=== PATIENT | female | born 1995 | race Caucasian/White ===

== ENCOUNTER 2017-07-02 17:29 | Emergency (ER) | payer BC ==
[~2017-07-02] VITALS: Ht 157.5 cm; Wt 74.4 kg
[2017-07-02 19:28] VITALS: BP 145/81
== END 2017-07-02 19:29 | disposition home or self-care (01) ==
LOC: RME 17:29 → EME 17:29 → RME 19:29
PROC: 0HQGXZZ Repair Left Hand Skin, External Approach (ICD-10-PCS; principal; 2017-07-02)
DX: S61.213A Laceration without foreign body of left middle finger without damage to nail, initial encounter (principal); W26.0XXA Contact with knife, initial encounter
CPT/HCPCS: 99281; 99283

== ENCOUNTER 2017-12-14 13:43 | Emergency (ER) | payer BC ==
[~2017-12-14] VITALS: Ht 157.5 cm; Wt 69.8 kg
[2017-12-14 17:30] LABS: HEMATOCRIT 42.5 % (36.0-46.0); MCH 29.2 PG (29.0-34.0); MCHC 32.9 G/DL (30.0-36.0); MCV 88.7 FL (83-99); PLATELET COUNT 221 K/uL (156-360); RBC DIS.WIDTH-CV 12.9 % (11.8-14.6); RBC DIS.WIDTH-SD 41.9 % (39-53); RED BLOOD COUNT 4.79 M/uL (3.80-5.20); WHITE BLOOD COUNT 5.5 K/uL (4.1-10.2)
[2017-12-14] MEDS ORDERED: VIBRAMYCIN100 MG PO (17:49)
[2017-12-14 18:07] LABS: CHLORIDE 107 MEQ/L (99-109); POTASSIUM 3.8 MEQ/L (3.7-5.4); SODIUM 139 MEQ/L (136-147)
[2017-12-14 18:12] LABS: CREATININE 0.6 MG/DL (0.6-1.3); GFR ESTIMATE (CALCULATED) > 59 mL/min/; GLUCOSE 84 mg/dL (70-99); UREA NITROGEN (BUN) 12 mg/dL (9-23)
[2017-12-14 18:40] LABS: QUANTITATIVE HCG < 4.0 MIU/ML
[2017-12-14 18:48] VITALS: BP 117/78
[2017-12-15 10:46] LABS: LYME DISEASE SEROLOGY SCREEN NEGATIVE (NEGATIVE)
== END 2017-12-14 18:50 | disposition home or self-care (01) ==
LOC: EME 13:43
PROVIDERS: Physician Assistant Medical
DX: A69.20 Lyme disease, unspecified (principal); R60.0 Localized edema
CPT/HCPCS: 80048; 84702; 85027; 86618; 93971; 99281; 99284